=== PATIENT | female | born 1955 | race Caucasian/White ===

== ENCOUNTER 2018-08-24 22:20 | Inpatient (IN) ==
[2018-08-24 22:54] LABS: ABG BASE EXCESS 13.5 mmol/L (-2.0-2.0)
[2018-08-24 22:55] LABS: ABG ALLEN TEST POS; ABG HCO3 40.1 mmol/L (22-26)
--- NOTE | 2018-08-24 23:13 | DR.AMS ---
HPI Time Seen Time Seen by Provider: 08/24/18 23:04 PCP Primary Care Physician: EVELIA HPI Comment HPI Comment: PATIENT IS 62YR OLD WHITE FEMALE WITH HISTORY OF HYPERTENSION, DM, CHF AND COPD ON HOME OXYGEN IS IN ED COMPLINING OF INCREASING SOB AND CONFUSION. HER PCP IS DR. ALTAMIRANO FROM [facility]. PATIENT IS HAVING CHEST TIGHTNESS. SHE IS BEING COUGHING, PRODUCTIVE YELLOW SPUTUM. SHE DENIES FEVER. PATIENTS DAUGHTER ALSO REPORT SHE IS NOT EATING AND IS HAVING URINARY INCONTINENCE. TODAY, FAMILY NOTED PATIENT RUNNING INTO THE WALL AND PULLING THINGS OUT OF THE AIR. DENIES TRAUMA. HAVE NOT TAKEN ANY PRESCRIPTION PAIN MEDS. SHE WAS NOT RESPONDING TO HER FAMILY IN A NORMAL MANNER. Complaint Cheif Complaint Doctors Comments: CONFUSE AND SOB Chief Complaint:: " SHE WENT [place] THE [place] WITH WALKER STARTED ACTING CONFUSED HER AIDE CAME AND GAVE HER A BATH SHE GOT BACK ON HER OXYGEN AND STARTED ACTING RIGHT THE TONIGHT SHE HAD STARTED ACTING CONFUSED AGAIN AND SHE HAS STARTED WHEEZING REALLY BAD." Reviewed Nurses Notes Reviewed: Yes Source History Provided: Patient and Family Member Mode of Arrival Mode of Arrival: Wheelchair Timing Onset of Chief Complaint: 08/24/18 Came On: Suddenly Symptoms: Worsening Duration Duration: Constant Duration: Days Quality Quality: Change in Behavior, Confusion, Memory Loss and Not Eating Severity Severity: Moderate Context Recent: None and Fever History Of: CVA, Diabetes and Steroid Use; denies Seizure, Immunosuppresion and Indwelling Martell Associated Signs and Symptoms Associated Signs and Symptoms: Generalized Weakness, Change in Behavior, Confusion and Decreased Oral Intake; denies Right Sided Weakness, Slurred Speech, Unresponsiveness and Seizure PMH PMH Past Medical History: Yes Past Medical History: CHF, COPD, Diabetes and Hypertension Past Surgical History: Yes Surgical History: Ortho Surgery Family History History of Family Medical Conditions: No Social History Alcohol Use: None Do you use any recreational Drugs:: No infectious screening Have you traveled outside the country in the last 6 months?: No ROS Review of Systems Constitutional: Weakness, Fatigue and Loss of Appetite; negative Chills, Diaphoresis, Fever and Malaise Eyes: No Symptoms Reported; negative Eye Pain, Tearing and Discharge ENTM: negative Ear Pain, Hearing Loss, Nose Discharge, Epistaxis, Nose Congestion and Throat Pain Respiratoy: Productive Cough, Short of Breath and Wheezing; negative Stridor and Hemoptysis Cardiovascular: Chest Pain (CHEST TIGHTNESS.) and Edema; negative Palpitations and Syncope Gastrointestinal/Abdominal: No Symptoms Reported; negative Abdominal Pain, Diarrhea and Vomiting Genitourinary: Other (URINARY INCONTINENCE.); negative Dysuria, Frequency and Hematuria Neurological: Headache, Weakness and Dizziness; negative Numbness, Paresthesia, Seizure and Tingling Musculoskeletal: Back Pain, Joint Pain and Muscle Pain; negative Muscle Stiffness and Neck Integumentary: Dryness, Rash (LEGS) and Wound (WOUND ABOVE UMBILICUS.) Hematologic/Lymphatic: No Symptoms Reported, Anemia, Blood Clots, Easy Bleeding and Easy Bruising; negative Swollen Glands and Lymphadenopathy Endocrine: Decreased Appetite; negative Flushing and Increased Thirst Psychiatric: Hallucinations All Other Systems: Reviewed and Negative Unable to Obtain Due To: Altered mental status PE Vitals Vital Signs: Temp Pulse Pulse Resp BP BP Pulse Ox 08/25/18 04:00 98.3 F 86 20 141/79 92 L 08/25/18 03:42 79 20 114/67 93 L 08/25/18 02:00 85 96 08/24/18 22:27 98.5 F 110 H 22 169/82 86 L General Limitations: Altered Mental Status General Appearance: Alert, In Distress and Obese Head Head Exam: Normal Inspection, Atraumatic and Normocephalic Head Exam Physical: negative Laceration, Abrasion, Contusion, Hematoma, Raccoon Eyes, Cowan's Sign, CSF Rhinorrhea and CSF Otorrhea Eyes Eye exam: PERRL and EOMI; negative Scleral Icterus, Conjunctival Injection, Per iorbital Swelling and Periorbital Tenderness Pupils: Regular, Round: Bilateral and Reactive: Bilateral ENT ENT Exam: Normal Oropharynx, Normal External Ear Exam, Mucous Membranes Moist and TM's Normal Bilaterally External Ear Exam: Normal External Inspection; negative Auricular Trauma, Mastoid Tenderness and Pain with Movement TM/Canal Exam: Bilateral: Normal Nose Exam: Normal Nose Exam; negative Sinus Tenderness, Nasal Deviation and Septal Hematoma Mouth Exam: Normal Inspection; negative Drooling, Trismus, Lip Swelling and Tongue Swelling Throat Exam: Normal Inspection; negative Tonsillar Erythema, Tonsillomegaly and Tonsillar Exudate Neck Neck Exam: Normal Inspection and Trachea Midline; negative Full ROM, Tenderness, Meningismus and Lymphadenopathy Chest Chest Inspection: Normal Inspection and Symmetric Chest Wall Rise; negative Tenderness Respiratory Respiratory Exam: Normal Lung Sounds Bilat and Respiratory Distress Respiratory Exam: Bilateral: Wheezing and Bilateral: Rhonchi, Left: Wheezing, Right: Wheezing, Upper: Wheezing and Lower: Wheezing and Lower: Rhonchi Cardiovascular Cardiovascular Exam: Regular Rate, Normal Rhythm and +S3; negative Diastolic M urmur and Rubs Abdominal Exam Abdominal Exam: Normal Bowel Sounds, Soft and Other (HEALING WOUND ABOVE UMBICUS WITH SCAB OVER WOUND.); negative Distention, Tenderness, Organomegaly and Mass Extremities Extremities Exam: Tenderness, Normal Capillary Refill, Edema and Joint Swelling; negative Calf Tenderness Back Back Exam: Normal Inspection, Tenderness, Paraspinal Tenderness and Vertebral Tenderness; negative Muscle Spasm Neurological Neurological Exam: Alert (ORIENTED TO PERSON/FAMILY.); negative Motor Sensory Deficit Patient Oriented To: Person; negative Place and Time Speech: Other (SLOW SPEECH.) Cranial Nerve Exam: Gag reflex (XI): Normal and Tongue Deviation: Normal Motor Strength - LUE: 5/5 Motor Strength - RUE: 5/5 Motor Strength - LLE: 4/5 Motor Strength - RLE: 4/5 Upper Motor Neuron Exam: Babinski Sign: Normal DTR: brachioradialis (L): 2+, brachioradialis (R): 2+, Patellar (L): 2+ and patellar (R): 2+ Psychological Psychiatric Exam: Flat Affect; negative Normal Affect, Normal Mood and Anxious Expanded Psychiatric Exam: Visual Hallucinations Skin Skin Exam: Rash and Erythema; negative Normal Color and Diaphoresis MDM Differential Diagnosis Metabolic: Dehydration, Hypercalcemia, Hypernatremia, Hypoglycemia, Hyponatremia and Hypoxemia Structural: Closed Head Injury, CVA and Mass Lesion Infectious: Sepsis and UTI COURSE Education/Counseling Education/Counseling: Patient and Family Educated On: Diagnosis ROR Labs Reviewed Laboratory Results Reviewed?: Yes Result Diagrams: 08/24/18 23:03 08/24/18 23:03 Laboratory: WBC 14.8 X10^3/uL (3.6-10.0) H 08/24/18 23:03 RBC 4.07 X10^6/uL (3.5-5.4) 08/24/18 23:03 Hgb 12.7 g/dL (12.0-16.0) 08/24/18 23:03 Hct 37.9 % (36.0-47.0) 08/24/18 23:03 MCV 93.0 fL (80.0-100.0) 08/24/18 23:03 MCH 31.1 pg (27.0-34.0) 08/24/18 23:03 MCHC 33.5 g/dL (33.0-35.0) 08/24/18 23:03 RDW 13.0 % (11.6-16.5) 08/24/18 23:03 Plt Count 179 X10^3/uL (150.0-450.0) 08/24/18 23:03 MPV 7.6 fL (7.4-11.0) 08/24/18 23:03 Neut % (Auto) 86.0 % (42.0-75.0) H 08/24/18 23:03 Lymph % (Auto) 6.7 % (21.0-51.0) L 08/24/18 23:03 [place]yer % (Auto) 7.0 % (0.0-13.0) 08/24/18 23:03 Eos % (Auto) 0.0 % (0.9-2.9) L 08/24/18 23:03 Baso % (Auto) 0.3 % (0.2-1.0) 08/24/18 23:03 Neut # (Auto) 12.7 x10^3/uL (2.2-4.8) H 08/24/18 23:03 Lymph # (Auto) 1.0 X10^3/uL (1.3-2.9) L 08/24/18 23:03 [place] # (Auto) 1.0 x10^3/uL (0.3-0.8) H 08/24/18 23:03 Eos # (Auto) 0.0 x10^3/uL (0.0-0.2) 08/24/18 23:03 Baso # (Auto) 0.0 X10^3/uL (0.0-0.1) 08/24/18 23:03 Absolute Nucleated RBC 0.1 /100WBC 08/24/18 23:03 Sample Site Rrad 08/24/18 22:45 ABG pH 7.440 (7.35-7.45) 08/24/18 22:45 ABG pCO2 59.0 mmHg (35.0-45.0) H* 08/24/18 22:45 ABG pO2 73.0 mmHg (80.0-100.0) L 08/24/18 22:45 ABG HCO3 40.1 mmol/L (22-26) H* 08/24/18 22:45 ABG O2 Saturation 95.0 % (90-100) 08/24/18 22:45 ABG Base Excess 13.5 mmol/L (-2.0-2.0) H 08/24/18 22:45 Thang Test Pos 08/24/18 22:45 A-a Gradient 81.0 mmHg 08/24/18 22:45 FiO2 32.0 08/24/18 22:45 Blood Gas Comments Pt ramírez well elj 08/24/18 22:45 Sodium 138 mmol/L (136-145) 08/24/18 23:03 Corrected Sodium 139 mmol/L (136-145) 08/24/18 23:03 Potassium 3.6 mmol/L (3.5-5.1) 08/24/18 23:03 Chloride 94 mmol/L (98-107) L 08/24/18 23:03 Carbon Dioxide 33.9 mmol/L (21-32) H 08/24/18 23:03 BUN 13 mg/dL (7-18) 08/24/18 23:03 Creatinine 1.04 mg/dL (0.55-1.02) H 08/24/18 23:03 Est GFR (MDRD) Af Amer > 60 (>60) 08/24/18 23:03 Est GFR (MDRD) Non-Af 57 (>60) L 08/24/18 23:03 Glucose 144 mg/dL (65-99) H 08/24/18 23:03 Lactic Acid 0.9 mmol/L (0.4-2.0) 08/24/18 23:38 Calcium 8.6 mg/dL (8.5-10.1) 08/24/18 23:03 Corrected Calcium 9.3 mg/dL (8.5-10.1) 08/24/18 23:03 Total Bilirubin 0.90 mg/dL (0.2-1.0) 08/24/18 23:03 AST 70 Units/L (15-37) H 08/24/18 23:03 ALT 64 Units/L (12-78) 08/24/18 23:03 Alkaline Phosphatase 287 Units/L (46-116) H 08/24/18 23:03 Creatine Kinase 38 Units/L (26-192) 08/24/18 23:03 CK-MB (CK-2) < 1.0 ng/mL (0-4.0) 08/24/18 23:03 CK/CKMB % Calc 2.6 % (<4) 08/24/18 23:03 Troponin I < 0.02 ng/mL (0-1.5) 08/24/18 23:03 Total Protein 8.7 g/dL (6.4-8.2) H 08/24/18 23:03 Albumin 3.1 g/dL (3.4-5.0) L 08/24/18 23:03 Globulin 5.6 g/dL (2.5-4.5) H 08/24/18 23:03 Albumin/Globulin Ratio 0.6 Ratio (1.1-2.1) L 08/24/18 23:03 Specimen Type Catherized urine 08/25/18 01:52 Urine Color Yellow (YELLOW) 08/25/18 01:52 Urine Appearance Cloudy (CLEAR) 08/25/18 01:52 Urine pH 6.5 (5.0 - 8.0) 08/25/18 01:52 Ur Specific [place] 1.015 (1.000-1.030) 08/25/18 01:52 Urine Protein 2+ (NEGATIVE) 08/25/18 01:52 Urine Glucose (UA) Negative (NEGATIVE) 08/25/18 01:52 Urine Ketones Negative (NEGATIVE) 08/25/18 01:52 Urine Occult Blood 4+ (NEGATIVE) 08/25/18 01:52 Urine Nitrite Positive (NEGATIVE) 08/25/18 01:52 Urine Bilirubin Negative (NEGATIVE) 08/25/18 01:52 Urine Urobilinogen 1+ (NORMAL) 08/25/18 01:52 Ur Leukocyte Esterase 1+ (NEGATIVE) 08/25/18 01:52 Urine RBC 3-5 /HPF (NONE SEEN) 08/25/18 01:52 Urine WBC 20-30 /HPF (NONE SEEN) 08/25/18 01:52 Ur Squamous Epith Cells Rare /HPF (NEGATIVE) 08/25/18 01:52 Urine Bacteria 3+ /HPF (NEGATIVE) 08/25/18 01:52 Urine Mucus Few /HPF (NEGATIVE) 08/25/18 01:52 Ur Culture Indicated? Yes/culture set up 08/25/18 01:52 XRAY XRAY Interpreted by: Radiologist XRAY Findings: REPORT ON RECORD NOTED AND DISCUSS WITH FAMILY AND PATIENT. EKG Rate: 97 [place]: Normal Rhythm: NSR Block: None Hypertrophy: LAE ST: Nonsp Diagnosis Discharge Problem: UTI (urinary tract infection)
[2018-08-24 23:14] LABS: BASOPHILS % (AUTO) 0.3 % (0.2-1.0); HEMATOCRIT 37.9 % (36.0-47.0); HEMOGLOBIN 12.7 g/dL (12.0-16.0); LYMPHOCYTES % (AUTO) 6.7 % (21.0-51.0); MEAN CORPUSCULAR HEMOGLOBIN 31.1 pg (27.0-34.0); MEAN CORPUSCULAR HGB CONC 33.5 g/dL (33.0-35.0); MEAN PLATELET VOLUME 7.6 fL (7.4-11.0); NEUTROPHILS # (AUTO) 12.7 x10^3/uL (2.2-4.8); PLATELET COUNT 179 X10^3/uL (150.0-450.0); RED BLOOD COUNT 4.07 X10^6/uL (3.5-5.4); WHITE BLOOD COUNT 14.8 X10^3/uL (3.6-10.0)
--- NOTE | 2018-08-24 23:27 | RAD ---
Chest, one view Indication: Confused, wheezing Comparison: None Findings: Patient is rotated toward the right. Accounting for patient rotation and AP technique, the heart is borderline enlarged without congestive failure. No focal infiltrate or significant effusion is identified. No pneumothorax. Impression: Mild cardiomegaly without acute chest process. Reported By:
[2018-08-24 23:29] LABS: BLOOD UREA NITROGEN 13 mg/dL (7-18); CALCIUM 8.6 mg/dL (8.5-10.1); CARBON DIOXIDE 33.9 mmol/L (21-32); CHLORIDE 94 mmol/L (98-107); COR NA(FOR HYPERGLY) 139 mmol/L (136-145); CREATININE 1.04 mg/dL (0.55-1.02); SODIUM 138 mmol/L (136-145); TROPONIN I < 0.02 ng/mL (0-1.5); eGFR NON BLACK RACES 57 (>60)
--- NOTE | 2018-08-24 23:32 | CT ---
CT head without contrast Indication: Confusion Technique: Helical CT images of the brain were obtained without IV contrast. Reformatted images in the coronal and sagittal planes were also generated for review. Comparison: None Findings: There is age-appropriate mild generalized cerebral atrophy with commensurate ventricular and sulcal enlargement. Jarrett-white differentiation is maintained. No visible acute infarction is identified. There is no intracranial hemorrhage, focal or generalized edema, extra-axial collection, hydrocephalus or mass. The visualized paranasal sinuses and mastoid air cells are predominantly clear. Imaged extracranial structures are grossly unremarkable. Impression: No acute intracranial abnormality. Reported By:
[2018-08-24 23:33] LABS: ALANINE AMINOTRANSFERASE 64 Units/L (12-78); ALBUMIN 3.1 g/dL (3.4-5.0); ALKALINE PHOSPHATASE 287 Units/L (46-116); ASPARTATE AMINO TRANSFERASE 70 Units/L (15-37); CKMB % 2.6 % (<4); COR CA(FOR HYPOALB) 9.3 mg/dL (8.5-10.1); CREATINE KINASE 38 Units/L (26-192); CREATINE KINASE MB < 1.0 ng/mL (0-4.0); TOTAL PROTEIN 8.7 g/dL (6.4-8.2)
[2018-08-25] MEDS ORDERED: ROCEPHIN VIAL 1 GRAM IVP ONE (01:42)
[2018-08-25] MEDS ORDERED: DUONEB 0.5 MG/3 MG NEB ONE (01:42)
[2018-08-25] MEDS ORDERED: DUONEB 0.5 MG/3 MG ONE (01:56)
[2018-08-25] MEDS ORDERED: ROCEPHIN VIAL 1 GRAM ONE (01:57)
[2018-08-25 02:00] LABS: BILIRUBIN,URINE NEGATIVE (NEGATIVE); BLOOD/HEMOGLOBIN,URINE 4+ (NEGATIVE); GLUCOSE, URINE NEGATIVE (NEGATIVE); KETONES,URINE NEGATIVE (NEGATIVE); LEUKOCYTE ESTERASE ,URINE 1+ (NEGATIVE); NITRITES,URINE POSITIVE (NEGATIVE); PH,URINE 6.5 (5.0 - 8.0); PROTEIN,URINE 2+ (NEGATIVE); UROBILINOGEN,URINE 1+ (NORMAL)
[2018-08-25 02:15] LABS: APPEARANCE,URINE CLOUDY (CLEAR); COLOR,URINE YELLOW (YELLOW)
[2018-08-25 02:16] LABS: BACTERIA,URINE 3+ /HPF (NEGATIVE); MUCUS,URINE FEW /HPF (NEGATIVE); SQUAMOUS EPITHELIAL CELL,UR RARE /HPF (NEGATIVE)
[2018-08-25 04:18] VITALS: BMI 48.9
[2018-08-25] MEDS ORDERED: NYSTATIN POWDER ONE (04:28)
[2018-08-25] MEDS: NYSTATIN POWDER TOP SCH ×3 (04:30→20:41)
[2018-08-25] MEDS ORDERED: DUONEB 0.5 MG/3 MG NEB SCH (05:00)
[2018-08-25 05:30] LABS: BASOPHILS % (AUTO) 0.3 % (0.2-1.0); HEMOGLOBIN 11.9 g/dL (12.0-16.0); LYMPHOCYTES # (AUTO) 1.1 X10^3/uL (1.3-2.9); LYMPHOCYTES % (AUTO) 9.6 % (21.0-51.0); MEAN CORPUSCULAR HEMOGLOBIN 30.8 pg (27.0-34.0); MEAN CORPUSCULAR HGB CONC 33.1 g/dL (33.0-35.0); MEAN CORPUSCULAR VOLUME 93.1 fL (80.0-100.0); MONOCYTES # (AUTO) 0.7 x10^3/uL (0.3-0.8); MONOCYTES % (AUTO) 6.2 % (0.0-13.0); NEUTROPHILS # (AUTO) 10.1 x10^3/uL (2.2-4.8); NEUTROPHILS % (AUTO) 83.9 % (42.0-75.0); PLATELET COUNT 174 X10^3/uL (150.0-450.0); RED BLOOD COUNT 3.86 X10^6/uL (3.5-5.4); RED CELL DISTRIBUTION WIDTH 12.9 % (11.6-16.5)
[2018-08-25] MEDS: DUONEB 0.5 MG/3 MG NEB SCH ×5 (05:30→20:25)
[2018-08-25 05:45] LABS: ALANINE AMINOTRANSFERASE 54 Units/L (12-78); ALBUMIN 2.6 g/dL (3.4-5.0); ALKALINE PHOSPHATASE 244 Units/L (46-116); ASPARTATE AMINO TRANSFERASE 55 Units/L (15-37); BLOOD UREA NITROGEN 11 mg/dL (7-18); CALCIUM 8.3 mg/dL (8.5-10.1); CARBON DIOXIDE 35.5 mmol/L (21-32); CHLORIDE 99 mmol/L (98-107); COR CA(FOR HYPOALB) 9.4 mg/dL (8.5-10.1); COR NA(FOR HYPERGLY) 141 mmol/L (136-145); CREATININE 0.83 mg/dL (0.55-1.02); MAGNESIUM 1.9 mg/dL (1.7-2.9); SODIUM 140 mmol/L (136-145); TOTAL PROTEIN 7.9 g/dL (6.4-8.2); eGFR NON BLACK RACES > 60 (>60)
[2018-08-25] MEDS ORDERED: XOPENEX 1.25 MG/3 ML NEBULE NEB SCH (06:00)
[2018-08-25] MEDS ORDERED: SALINE 3% 15 ML NEB TX NEB ONE (06:00)
[2018-08-25 06:16] LABS: CKMB % 2.6 % (<4); CREATINE KINASE 38 Units/L (26-192); CREATINE KINASE MB < 1.0 ng/mL (0-4.0); TROPONIN I < 0.02 ng/mL (0-1.5)
[2018-08-25] MEDS: ROCEPHIN VIAL 1 GRAM IVP SCH (08:21)
[2018-08-25] MEDS ORDERED: ROCEPHIN VIAL 1 GRAM IVP SCH (09:00)
[2018-08-25] MEDS: ACTOS PO SCH (09:58)
[2018-08-25] MEDS: FLONASE NASAL SPRAY ENOSTRIL SCH (09:59)
[2018-08-25] MEDS: CELEXA PO SCH (09:59)
[2018-08-25] MEDS: LOVENOX INJ 40 MG SYR SC SCH (09:59)
[2018-08-25] MEDS: GLUCOPHAGE XR PO SCH ×2 (09:59→20:40)
[2018-08-25] MEDS: ZYLOPRIM PO SCH (10:00)
[2018-08-25] MEDS: METHADONE HCL PO SCH ×3 (10:00→20:38)
[2018-08-25] MEDS: SYNTHROID 100 mcg TAB PO SCH (10:03)
[2018-08-25 12:04] LABS: CKMB % 2.7 % (<4); CREATINE KINASE 37 Units/L (26-192); CREATINE KINASE MB < 1.0 ng/mL (0-4.0); TROPONIN I < 0.02 ng/mL (0-1.5)
[2018-08-25] MEDS ORDERED: NS 250 ML IV 250 ML ONE (13:09)
[2018-08-25] MEDS ORDERED: ZOSYN VIAL 3.375 GRAMS IV SCH (14:00)
[2018-08-25] MEDS: ZOSYN VIAL 3.375 GRAMS 3.375 G in NS 100 ML IV + SPIKE MINIBAG* 100 ML IV SCH ×2 (14:40→22:00)
[2018-08-25] MEDS: MICRO K EXTEN CAP 10 MEQ PO SCH (20:37)
[2018-08-25] MEDS: LOPRESSOR TAB 25 MG PO SCH (20:37)
[2018-08-25] MEDS: AMBIEN PO PRN (22:02)
[2018-08-26] MEDS: DUONEB 0.5 MG/3 MG NEB SCH ×6 (01:45→20:17)
[2018-08-26] MEDS ORDERED: NS 500 ML IV 500 ML ONE (03:58)
[2018-08-26] MEDS: METHADONE HCL PO SCH ×4 (04:11→20:02)
[2018-08-26 05:19] LABS: BASOPHILS % (AUTO) 0.5 % (0.2-1.0); EOSINOPHILS # (AUTO) 0.1 x10^3/uL (0.0-0.2); EOSINOPHILS % (AUTO) 0.9 % (0.9-2.9); HEMATOCRIT 37.2 % (36.0-47.0); HEMOGLOBIN 12.1 g/dL (12.0-16.0); LYMPHOCYTES # (AUTO) 1.3 X10^3/uL (1.3-2.9); LYMPHOCYTES % (AUTO) 16.3 % (21.0-51.0); MEAN CORPUSCULAR HEMOGLOBIN 30.9 pg (27.0-34.0); MEAN CORPUSCULAR HGB CONC 32.5 g/dL (33.0-35.0); MEAN CORPUSCULAR VOLUME 94.8 fL (80.0-100.0); MEAN PLATELET VOLUME 8.2 fL (7.4-11.0); MONOCYTES # (AUTO) 0.7 x10^3/uL (0.3-0.8); MONOCYTES % (AUTO) 8.8 % (0.0-13.0); NEUTROPHILS % (AUTO) 73.5 % (42.0-75.0); PLATELET COUNT 160 X10^3/uL (150.0-450.0); RED BLOOD COUNT 3.92 X10^6/uL (3.5-5.4); RED CELL DISTRIBUTION WIDTH 13.3 % (11.6-16.5); WHITE BLOOD COUNT 8.2 X10^3/uL (3.6-10.0)
[2018-08-26] MEDS: ZOSYN VIAL 3.375 GRAMS 3.375 G in NS 100 ML IV + SPIKE MINIBAG* 100 ML IV SCH ×3 (05:29→23:00)
[2018-08-26 05:38] LABS: ALANINE AMINOTRANSFERASE 42 Units/L (12-78); ALBUMIN 2.7 g/dL (3.4-5.0); ALKALINE PHOSPHATASE 218 Units/L (46-116); ASPARTATE AMINO TRANSFERASE 36 Units/L (15-37); BLOOD UREA NITROGEN 14 mg/dL (7-18); CALCIUM 8.4 mg/dL (8.5-10.1); CARBON DIOXIDE 36.4 mmol/L (21-32); CHLORIDE 99 mmol/L (98-107); COR CA(FOR HYPOALB) 9.4 mg/dL (8.5-10.1); CREATININE 0.95 mg/dL (0.55-1.02); SODIUM 140 mmol/L (136-145); eGFR NON BLACK RACES > 60 (>60)
[2018-08-26] MEDS: SYNTHROID 100 mcg TAB PO SCH (06:04)
[2018-08-26] MEDS: GLUCOPHAGE XR PO SCH ×2 (08:49→20:00)
[2018-08-26] MEDS: CELEXA PO SCH (08:50)
[2018-08-26] MEDS: MICRO K EXTEN CAP 10 MEQ PO SCH (08:50)
[2018-08-26] MEDS: ZYLOPRIM PO SCH (08:51)
[2018-08-26] MEDS: LOVENOX INJ 40 MG SYR SC SCH (08:51)
[2018-08-26] MEDS: ACTOS PO SCH (08:51)
[2018-08-26] MEDS: LOPRESSOR TAB 25 MG PO SCH ×2 (08:51→20:01)
[2018-08-26] MEDS: ROCEPHIN VIAL 1 GRAM IVP SCH (08:51)
[2018-08-26] MEDS: FLONASE NASAL SPRAY ENOSTRIL SCH (08:52)
[2018-08-26] MEDS: NYSTATIN POWDER TOP SCH ×2 (08:52→20:07)
[2018-08-26] MEDS ORDERED: TYGACIL 50 MG VIAL 100 MG in NS 100 ML IV 100 ML IV ONE (09:14)
[2018-08-26] MEDS ORDERED: TYGACIL 50 MG VIAL 50 MG in NS 100 ML IV 100 ML IV SCH (19:14)
[2018-08-26] MEDS: AMBIEN PO PRN (20:02)
[2018-08-26] MEDS: TYGACIL 50 MG VIAL 50 MG in NS 100 ML IV 100 ML IV SCH (20:08)
[2018-08-27] MEDS: DUONEB 0.5 MG/3 MG NEB SCH ×6 (01:30→20:53)
[2018-08-27] MEDS: METHADONE HCL PO SCH ×4 (04:38→20:58)
[2018-08-27] MEDS: ZOSYN VIAL 3.375 GRAMS 3.375 G in NS 100 ML IV + SPIKE MINIBAG* 100 ML IV SCH ×3 (05:38→21:05)
[2018-08-27 05:56] LABS: BASOPHILS # (AUTO) 0.1 X10^3/uL (0.0-0.1); BASOPHILS % (AUTO) 0.7 % (0.2-1.0); EOSINOPHILS # (AUTO) 0.2 x10^3/uL (0.0-0.2); EOSINOPHILS % (AUTO) 1.8 % (0.9-2.9); HEMATOCRIT 35.5 % (36.0-47.0); HEMOGLOBIN 11.7 g/dL (12.0-16.0); LYMPHOCYTES # (AUTO) 1.8 X10^3/uL (1.3-2.9); LYMPHOCYTES % (AUTO) 18.3 % (21.0-51.0); MEAN CORPUSCULAR HEMOGLOBIN 30.9 pg (27.0-34.0); MEAN CORPUSCULAR HGB CONC 32.9 g/dL (33.0-35.0); MEAN CORPUSCULAR VOLUME 94.1 fL (80.0-100.0); MEAN PLATELET VOLUME 8.2 fL (7.4-11.0); MONOCYTES # (AUTO) 0.9 x10^3/uL (0.3-0.8); MONOCYTES % (AUTO) 8.9 % (0.0-13.0); NEUTROPHILS # (AUTO) 6.8 x10^3/uL (2.2-4.8); NEUTROPHILS % (AUTO) 70.3 % (42.0-75.0); PLATELET COUNT 166 X10^3/uL (150.0-450.0); RED BLOOD COUNT 3.77 X10^6/uL (3.5-5.4); RED CELL DISTRIBUTION WIDTH 13.2 % (11.6-16.5); WHITE BLOOD COUNT 9.7 X10^3/uL (3.6-10.0)
[2018-08-27 06:14] LABS: ALANINE AMINOTRANSFERASE 33 Units/L (12-78); ALBUMIN 2.5 g/dL (3.4-5.0); ALKALINE PHOSPHATASE 201 Units/L (46-116); ASPARTATE AMINO TRANSFERASE 30 Units/L (15-37); BLOOD UREA NITROGEN 21 mg/dL (7-18); CALCIUM 8.4 mg/dL (8.5-10.1); CARBON DIOXIDE 32.6 mmol/L (21-32); CHLORIDE 100 mmol/L (98-107); COR CA(FOR HYPOALB) 9.6 mg/dL (8.5-10.1); CREATININE 0.95 mg/dL (0.55-1.02); SODIUM 138 mmol/L (136-145); TOTAL PROTEIN 7.6 g/dL (6.4-8.2); eGFR NON BLACK RACES > 60 (>60)
[2018-08-27] MEDS: SYNTHROID 100 mcg TAB PO SCH (06:14)
[2018-08-27] MEDS ORDERED: POTASSIUM CHLORIDE LIQ 20 MEQ UDC PO PRN (07:52)
[2018-08-27] MEDS ORDERED: K-RIDER 10 MEQ/NS 100 ML 10 MEQ/100 ML BAG IV PRN (07:52)
[2018-08-27] MEDS ORDERED: POTASSIUM CHL 60 MEQ/NS 0.45% 500 ML IV PRN (07:52)
[2018-08-27] MEDS ORDERED: POTASSIUM CHL 40 MEQ/NS 0.45% 500 ML IV PRN (07:52)
[2018-08-27] MEDS ORDERED: MAGNESIUM SULFATE 1 GRAM/100 mL PREMIX 1 GM/100 ML BAG IV PRN (07:52)
[2018-08-27] MEDS ORDERED: KLOR-CON PO PRN (07:52)
[2018-08-27] MEDS ORDERED: K-DUR TAB 20 MEQ PO PRN (07:52)
[2018-08-27] MEDS ORDERED: MICRO K EXTEN CAP 10 MEQ PO PRN (07:52)
[2018-08-27] MEDS: TYGACIL 50 MG VIAL 50 MG in NS 100 ML IV 100 ML IV SCH (08:30)
[2018-08-27] MEDS: ACTOS PO SCH (08:31)
[2018-08-27] MEDS: LOPRESSOR TAB 25 MG PO SCH ×2 (08:31→20:58)
[2018-08-27] MEDS: GLUCOPHAGE XR PO SCH ×2 (08:31→20:58)
[2018-08-27] MEDS: ZYLOPRIM PO SCH (08:31)
[2018-08-27] MEDS: CELEXA PO SCH (08:33)
[2018-08-27] MEDS: LOVENOX INJ 40 MG SYR SC SCH (08:34)
[2018-08-27] MEDS: FLONASE NASAL SPRAY ENOSTRIL SCH (08:43)
[2018-08-27] MEDS: NYSTATIN POWDER TOP SCH ×2 (08:43→20:59)
[2018-08-27] MEDS: MICRO K EXTEN CAP 10 MEQ PO SCH (11:42)
[2018-08-27] MEDS: BACTRIM DS TAB PO SCH ×2 (16:23→20:58)
[2018-08-27] MEDS: AMBIEN PO PRN (21:04)
[2018-08-28] MEDS: DUONEB 0.5 MG/3 MG NEB SCH ×4 (00:50→12:45)
[2018-08-28] MEDS: METHADONE HCL PO SCH ×2 (03:16→08:28)
[2018-08-28 05:21] LABS: BASOPHILS # (AUTO) 0.1 X10^3/uL (0.0-0.1); BASOPHILS % (AUTO) 0.7 % (0.2-1.0); EOSINOPHILS # (AUTO) 0.2 x10^3/uL (0.0-0.2); EOSINOPHILS % (AUTO) 1.8 % (0.9-2.9); HEMATOCRIT 35.7 % (36.0-47.0); HEMOGLOBIN 11.7 g/dL (12.0-16.0); LYMPHOCYTES # (AUTO) 2.1 X10^3/uL (1.3-2.9); LYMPHOCYTES % (AUTO) 21.1 % (21.0-51.0); MEAN CORPUSCULAR HEMOGLOBIN 30.6 pg (27.0-34.0); MEAN CORPUSCULAR HGB CONC 32.6 g/dL (33.0-35.0); MEAN CORPUSCULAR VOLUME 93.9 fL (80.0-100.0); MEAN PLATELET VOLUME 8.1 fL (7.4-11.0); MONOCYTES # (AUTO) 0.8 x10^3/uL (0.3-0.8); MONOCYTES % (AUTO) 7.6 % (0.0-13.0); NEUTROPHILS # (AUTO) 6.9 x10^3/uL (2.2-4.8); NEUTROPHILS % (AUTO) 68.8 % (42.0-75.0); PLATELET COUNT 184 X10^3/uL (150.0-450.0)
[2018-08-28] MEDS: ZOSYN VIAL 3.375 GRAMS 3.375 G in NS 100 ML IV + SPIKE MINIBAG* 100 ML IV SCH (06:03)
[2018-08-28] MEDS: SYNTHROID 100 mcg TAB PO SCH (06:04)
[2018-08-28] MEDS: CELEXA PO SCH (08:25)
[2018-08-28] MEDS: ZYLOPRIM PO SCH (08:27)
[2018-08-28] MEDS: ACTOS PO SCH (08:27)
[2018-08-28] MEDS: GLUCOPHAGE XR PO SCH (08:27)
[2018-08-28] MEDS: MICRO K EXTEN CAP 10 MEQ PO SCH (08:27)
[2018-08-28] MEDS: BACTRIM DS TAB PO SCH (08:27)
[2018-08-28] MEDS: LOVENOX INJ 40 MG SYR SC SCH (08:31)
[2018-08-28] MEDS: LOPRESSOR TAB 25 MG PO SCH (08:31)
[2018-08-28] MEDS: FLONASE NASAL SPRAY ENOSTRIL SCH (08:32)
[2018-08-28] MEDS: NYSTATIN POWDER TOP SCH (08:32)
[2018-08-28 12:41] VITALS: BP 97/56
== END 2018-08-28 11:45 | disposition home or self-care (01) | DRG 689 ==
LOC: ER 22:25 → MED/SURG 08-25 03:08
PROVIDERS: ADMIT Obstetrics & Gynecology Obstetrics; ATTEND Obstetrics & Gynecology Obstetrics
DX: R41.82 Altered mental status, unspecified; J20.8 Acute bronchitis due to other specified organisms; N39.0 Urinary tract infection, site not specified; R07.89 Other chest pain; R26.89 Other abnormalities of gait and mobility; Z22.322 Carrier or suspected carrier of Methicillin resistant Staphylococcus aureus; J44.1 Chronic obstructive pulmonary disease with (acute) exacerbation; A41.89 Other specified sepsis; I10 Essential (primary) hypertension; B95.62 Methicillin resistant Staphylococcus aureus infection as the cause of diseases classified elsewhere; B96.29 Other Escherichia coli [E. coli] as the cause of diseases classified elsewhere; R55 Syncope and collapse; E11.65 Type 2 diabetes mellitus with hyperglycemia; B96.89 Other specified bacterial agents as the cause of diseases classified elsewhere; Z99.81 Dependence on supplemental oxygen; R60.0 Localized edema
CPT/HCPCS: 36415; 36600; 51701; 70450; 71010; 71045; 80053; 81001; 82550; 82553; 82803; 83605; 83735; 84132; 84484; 85025; 87040; 87070; 87075; 87077; 87086; 87088; 87186; 87205; 93005; 93306; 94640; 94760; 96365; 96374; 97110; 97162; 97166; 97530; 97535; 99284; A4222; S0109; J0696; J1650; J2543; J3243; J3475; J7040; J7050; J7620